=== PATIENT | male | born 1950 | race Caucasian/White ===

== ENCOUNTER 2020-07-26 11:00 | Outpatient (CLI) | payer MEDICARE, OTHER ==
[2020-07-26] MEDS ORDERED: UREA 10% -AHA 4% CREAM 57 GM TUBE ONE (12:12)
== END 2020-07-26 23:59 | disposition home or self-care (01) ==
LOC: WOU 11:00
PROVIDERS: ATTEND Podiatrist Foot & Ankle Surgery
DX: Z09 Encounter for follow-up examination after completed treatment for conditions other than malignant neoplasm (principal); Z86.31 Personal history of diabetic foot ulcer; E11.42 Type 2 diabetes mellitus with diabetic polyneuropathy; Z79.84 Long term (current) use of oral hypoglycemic drugs; L60.2 Onychogryphosis; L84 Corns and callosities; B35.1 Tinea unguium; L90.5 Scar conditions and fibrosis of skin; I10 Essential (primary) hypertension
CPT/HCPCS: G0463

== ENCOUNTER 2020-12-13 09:35 | Outpatient (CLI) | payer MEDICARE, OTHER ==
[2020-12-13] MEDS ORDERED: CADEXOMER IODINE UD 5 GM TUBE ONE (10:24)
== END 2020-12-13 23:59 | disposition home or self-care (01) ==
LOC: WOU 09:35
PROVIDERS: ATTEND Podiatrist Foot & Ankle Surgery
DX: E11.622 Type 2 diabetes mellitus with other skin ulcer (principal); L97.212 Non-pressure chronic ulcer of right calf with fat layer exposed; E11.42 Type 2 diabetes mellitus with diabetic polyneuropathy; Z79.84 Long term (current) use of oral hypoglycemic drugs; L84 Corns and callosities; B35.1 Tinea unguium; L60.2 Onychogryphosis; L90.5 Scar conditions and fibrosis of skin
CPT/HCPCS: 11042; 11056; 87102-TC

== ENCOUNTER → 2020-12-20 | Outpatient (CLI) | payer MEDICARE, OTHER ==
[~2020-12-20] MED LIST: CADEXOMER IODINE UD 5 GM TUBE ONE
== END | disposition home or self-care (01) ==
LOC: WOU 11:15
PROVIDERS: ATTEND Podiatrist Foot & Ankle Surgery
DX: E11.622 Type 2 diabetes mellitus with other skin ulcer (principal); L97.212 Non-pressure chronic ulcer of right calf with fat layer exposed; E11.42 Type 2 diabetes mellitus with diabetic polyneuropathy; L84 Corns and callosities; L60.2 Onychogryphosis; B35.1 Tinea unguium; L90.5 Scar conditions and fibrosis of skin; Z79.84 Long term (current) use of oral hypoglycemic drugs
CPT/HCPCS: 11042

== ENCOUNTER 2021-12-05 09:25 | Outpatient (CLI) | payer MEDICARE, OTHER ==
[2021-12-05] MEDS ORDERED: CLOTRIMAZOLE 1% 15 GM TUBE TP ONE (10:04)
== END 2021-12-05 23:59 | disposition home or self-care (01) ==
LOC: WOU 09:25
PROVIDERS: ATTEND Podiatrist Foot & Ankle Surgery
DX: Z09 Encounter for follow-up examination after completed treatment for conditions other than malignant neoplasm (principal); E11.42 Type 2 diabetes mellitus with diabetic polyneuropathy; L90.5 Scar conditions and fibrosis of skin; L60.2 Onychogryphosis; B35.1 Tinea unguium; Z86.31 Personal history of diabetic foot ulcer; Z79.84 Long term (current) use of oral hypoglycemic drugs
CPT/HCPCS: G0463